=== PATIENT | female | born 2000 | race Caucasian/White ===

== ENCOUNTER → 2020-11-05 07:27 | Outpatient (CLI) | payer BC, SELFPAY ==
--- NOTE | ~2020-11-05 | XR_ITS ---
EXAMINATION: XR chest 2V 11/05/2020 08:04 INDICATION: Cough PROCEDURE: 2 view chest COMPARISON: No prior studies for comparison. FINDINGS: The lungs are clear. The cardiomediastinal silhouette is within normal limits. There are no pleural effusions. There is no pneumothorax suspected. IMPRESSION: 1: NO ACUTE CARDIOPULMONARY DISEASE. Reviewed, dictated and finalized at location B.
== END ==
PROVIDERS: PCP Physician Assistant; Visit Provider Physician Assistant
DX: R05 Cough (principal)
CPT/HCPCS: 71046

== ENCOUNTER 2021-11-05 11:05 | Emergency (ER) | payer BC, SELFPAY ==
--- NOTE | ~2021-11-05 | XR_ITS ---
EXAMINATION: XR hand LT min 3V DATE: 11/05/2021 11:28 INDICATION: Left hand pain with supination TECHNIQUE: Posteroanterior, oblique and lateral views of the left hand were obtained. COMPARISON: None. FINDINGS: Alignment is normal. No fracture. Joint spaces are normal. Soft tissues are unremarkable. IMPRESSION: 1. . Negative left hand radiographs. Reviewed, dictated and finalized at location B.
[2021-11-05 11:11] VITALS: BP 128/90; PULSE 74; RESP 16; TEMP 36.4; O2SAT 100
--- NOTE | 2021-11-05 11:20 | ED.EXTPRO ---
HPI - Extremity Problem General Chief complaint: Extremity Problem,Nontraumatic Stated complaint: Lt Hand and Wrist Pain Time Seen by Provider: 11/05/21 11:21 Source: patient Mode of arrival: ambulatory Limitations: no limitations History of Present Illness HPI Narrative: Loida Lee is a 21 y female with a PMH of anxiety and GERD who comes to [facility] with complaints of left wrist pain started on Wednesday night. She denies any trauma, strain, but states she cannot supinate her wrist because the pain is too bad. She describes the pain on the wrist that radiates up into her fourth finger Related Data Home Medications Medication Instructions Recorded Confirmed omeprazole 20 mg PO DAILY 11/05/21 11/05/21 sertraline 50 mg PO DAILY 11/05/21 11/05/21 Allergies Allergy/AdvReac Type Severity Reaction Status Date / Time NKDA Allergy Mild Other Uncoded 11/05/21 11:07 Review of Systems Review of Systems: CONSTITUTIONAL: Denies fever, chills, sweats. EYES: Denies visual changes, redness, discharge. ENT: Denies rhinorrhea, congestion, sore throat, otalgia. CARDIOVASCULAR: Denies chest pain, palpitations, edema. RESPIRATORY: Denies dyspnea, wheezing, cough GASTROINTESTINAL: Denies abdominal pain, nausea, vomiting, diarrhea. GENITOURINARY: Denies dysuria, hematuria, abnormal discharge SKIN: Denies rash or itching. NEUROLOGIC: Denies numbness, or focal weakness. PSYCHIATRIC: Denies anxiety or depression. Left wrist pain with restricted movement PMFSH Past Medical History Medical History Anxiety GERD (gastroesophageal reflux disease) Social History Social History (Updated 11/05/21 @ 11:28 by Alyce Llamas CNP) Smoking status: Never smoker Alcohol intake: current Comments At time of signature, I agree with nursing past medical, surgical, social and family history. There is no relevant family history pertinent to the presenting complaint. Exam Narrative: GENERAL: This is a well-nourished, well-developed patient, in mild distress. HEAD: normocephalic, atraumatic. EYES: Sclera clear/white. Vision is grossly intact. EARS: External ears normal,. Hearing grossly intact. NOSE: External nose normal without nasal discharge, nares without redness, no rhinorrhea. THROAT: Mucous membranes moist, posterior pharynx NECK: Neck supple, non-tender CARDIOVASCULAR: Regular rate and rhythm without murmurs, gallops, or rubs. RESPIRATORY: Clear to auscultation. Breath sounds equal bilaterally. No wheezes, rales, or rhonchi. GASTROINTESTINAL: Abdomen soft, non-tender, SKIN: warm, intact with no suspicious lesions or rash, good texture and turgor. NEURO: awake, alert, and oriented to person, place and time. There were no obvious focal neurologic abnormalities. Steady gait EXTREMITIES: Normal range of motion on R- on L feels cool, good cap refill, can splay fingers with pain, will not supinate L wrist due to pain, no swelling or ecchymosis BACK: Nontender without deformity Course Course Emergency Course: Complaints of left wrist and hand ipain denies injury- wearing velcro splint and taking ibuprofen without effect Xray of left wrist and hand-negative left hand radiograph alignment is normal no fracture joint spaces are normal soft tissue unremarkable Wrist wrapped with Flaquito wrap and continue ibuprofen 600 mg 3 times daily as needed Level of Care: Express Care Visit Vital Signs Vital signs: Vital Signs Temperature 97.5 F L 11/05/21 11:11 Pulse Rate 74 11/05/21 11:11 Respiratory Rate 16 11/05/21 11:11 Blood Pressure 128/90 11/05/21 11:11 Pulse Oximetry 100 11/05/21 11:11 Temperature 97.5 F L 11/05/21 11:11 Pulse Rate 74 11/05/21 11:11 Respiratory Rate 16 11/05/21 11:11 Blood Pressure 128/90 11/05/21 11:11 Pulse Oximetry 100 11/05/21 11:11 MDM - Extremity (Nontraumatic) MDM Narrative Medical decision making narrative: Wrist
== END 2021-11-05 11:41 | disposition home or self-care (01) ==
PROVIDERS: Emergency Provider Nurse Practitioner; PCP Physician Assistant
DX: M25.532 Pain in left wrist (principal); K21.9 Gastro-esophageal reflux disease without esophagitis; F41.9 Anxiety disorder, unspecified
CPT/HCPCS: 73130; 99213; G0463

== ENCOUNTER 2022-03-31 09:38 | Outpatient (CLI) | payer BC, SELFPAY ==
--- NOTE | ~2022-03-31 | XR_ITS ---
UGI-AIR CONTRAST/SMALL BOWEL INDICATION: Generalized abdominal pain. Nausea. TECHNIQUE: Serial images of the upper GI tract structures and small bowel are performed following ora l administration of barium using double contrast technique. COMPARISON: None FINDINGS: Barium flowed readily through the esophagus. There is a small sliding hiatal hernia with ga stroesophageal reflux. Gastric contour, mucosa and motility are normal. The duodenal bulb fills and empties regularly and has a normal mucosal pattern. The duodenal sweep is in normal position. The m ucosal pattern of the small bowel is unremarkable with normal transit time to the colon. IMPRESSION: 1: Small sliding hiatal hernia with gastroesophageal reflux.. Reviewed, dictated and finalized at location A.
== END 2022-03-31 09:39 | disposition home or self-care (01) ==
PROVIDERS: PCP Physician Assistant; Visit Provider Physician Assistant
DX: R10.13 Epigastric pain (principal); K44.9 Diaphragmatic hernia without obstruction or gangrene; K21.9 Gastro-esophageal reflux disease without esophagitis
CPT/HCPCS: 74246; 74248

== ENCOUNTER 2022-04-16 09:59 | Outpatient (CLI) | payer BC, SELFPAY ==
[2022-04-16 10:27] LABS: Hematocrit 38.6 % (37.0-47.0); Hemoglobin 12.5 g/dL (12.0-15.0); Mean Corpuscular HGB Conc 32.4 g/dl (32-36); Mean Corpuscular Hemoglobin 29.1 pg (26-34); Platelet Count Result 211 k/mm3 (150-375); Red Blood Count 4.29 M/mm3 (4.2-5.4); Red Cell Distribution Width 13.1 % (11.5-14.5); White Blood Count 5.6 K/mm3 (4.5-10.0)
[2022-04-16 10:57] LABS: Alanine Aminotransferase 16 U/L (6-35); Albumin Level 4.5 g/dL (3.5-5.1); Alkaline Phosphatase 47 U/L (38-126); Anion Gap 12 mmol/L (8-16); Aspartate Amino Transferase 19 U/L (14-36); Bilirubin,Total 0.2 mg/dL (0.2-1.3); Blood Urea Nitrogen 14 mg/dL (7-17); Calcium 8.9 mg/dL (8.4-10.2); Carbon Dioxide 26 mmol/L (22-30); Chloride 103 mmol/L (98-107); Estimated Glomerular Filt Rate > 60; Glucose 98 mg/dL (65-110); Sodium 141 mmol/L (137-145)
[2022-04-27 08:46] LABS: Gliadin AB, IgG <1.0; TTG IGA AB <1.0
== END 2022-04-16 10:00 | disposition home or self-care (01) ==
LOC: ANHLAB 10:02
PROVIDERS: PCP Physician Assistant; Visit Provider Nurse Practitioner
DX: F41.9 Anxiety disorder, unspecified (principal); K21.9 Gastro-esophageal reflux disease without esophagitis; R10.13 Epigastric pain; R93.3 Abnormal findings on diagnostic imaging of other parts of digestive tract; Z91.018 Allergy to other foods
CPT/HCPCS: 36415; 80053; 83516; 84443; 85027

== ENCOUNTER 2022-06-03 01:17 | Day surgery (SDC) | payer BC, SELFPAY ==
[2022-05-20 13:42] VITALS: BMI 29.4
--- NOTE | 2022-06-02 15:26 | PM.HPGS ---
History of Present Illness History of Present Illness Consent: Risks, benefits, and alternatives have been discussed and questions answered. Patient agrees to proceed with procedure. Chief complaint: GERD Narrative: Loida Lee is a 21 year old female Who states that ever since she was a baby she has had severe GERD.? She had been on Omeprazole 20 mg daily for several years. She states March 2021 she had increased epigastric burning and her PCP increased her omeprazole 40 mg daily and placed on Gaviscon 2 tabs daily and burning sensation subsided-she states around 1 month ago she began having epigastric burning again despite continuing to take her medication.? She states epigastric burning is constant whether she eats or does not eat and she will occasionally have reflux multiple times per week with some chest discomfort.? she recently had an upper GI on which there was noted a small hiatal hernia, and reflux was able to be induced. She states her entire stomach joyce almost all the time as if there is a match in there. This happens with that she is eating or not but might get worse if she has spicy foods. She had that she is allergic to many foods such as wheat based on blood tests that were done. She has not been diagnosed with celiac disease. Her mother stated that when Loida was a that she was vomiting and projectile fashion. They had performed an EGD which she was 1-week-old I told her that her flap does not close the vomiting did eventually stop Review of Systems Review of Systems: All systems reviewed & are unremarkable except as noted in HPI and below PMFSH Past Medical History Medical History Abnormal digestive system diagnostic imaging Anxiety Anxiety Epigastric burning sensation Gastroesophageal reflux disease GERD (gastroesophageal reflux disease) Multiple food allergies Overweight (BMI 25.0-29.9) Social History Social History Smoking status: Never smoker Alcohol intake: never Substance use: never Substance use type: does not use Living arrangements: with family Gender identity (if verbalized by the patient): Female Spiritual care concerns: No Meds Home Medications and Allergies Home Medications Medication Instructions Recorded Confirmed Type sertraline 50 mg tablet 50 mg PO DAILY 11/05/21 05/20/22 History ascorbic acid (vitamin C) 1,000 mg 1 g PO DAILY 04/16/22 05/20/22 History capsule cholecalciferol (vitamin D3) 250 250 mcg PO DAILY 04/16/22 05/20/22 History mcg (10,000 unit) capsule sucralfate 1 gram tablet (Carafate) 1 g PO ACHS #120 tabs 04/16/22 05/20/22 Rx omeprazole magnesium 20 mg 20 mg PO DAILY 05/20/22 05/20/22 History tablet,delayed release (Prilosec OTC) Gaviscon Extra Strength 06/03/22 History Allergies Allergy/AdvReac Type Severity Reaction Status Date / Time almond Allergy Nausea and Verified 06/03/22 10:59 Vomiting egg Allergy Nausea and Verified 06/03/22 10:51 Vomiting hazelnut Allergy Nausea and Verified 06/03/22 11:00 Vomiting lettuce Allergy Nausea and Verified 06/03/22 10:59 Vomiting Milk Containing Products Allergy Nausea and Verified 06/03/22 10:58 Vomiting peanut Allergy Nausea and Verified 06/03/22 10:58 Vomiting sesame seed Allergy Nausea and Verified 06/03/22 10:59 Vomiting soybean Allergy Nausea and Verified 06/03/22 10:51 Vomiting walnut Allergy Nausea and Verified 06/03/22 11:00 Vomiting wheat Allergy Nausea and Verified 06/03/22 10:57 Vomiting NKDA Allergy Mild Other Uncoded 06/03/22 10:29 Exam Const: General: alert Orientation/consciousness: patient oriented x3 Resp: Auscultation: clear to auscultation bilaterally Cardio: Rhythm: regular rhythm GI: GI Palp: Yes Soft to palpation and No Tenderness to palpation present (GI) Neuro:
[2022-06-03 10:30] VITALS: BP 107/66; PULSE 73; RESP 18; TEMP 36.6; O2SAT 99
[2022-06-03] MEDS: LACTATED RINGERS 1,000 ML 150 ML IV CONT (10:48)
--- NOTE | 2022-06-03 11:52 | WPDANESEPPF ---
Anes - Initial Pre Proc Eval Procedure: Operation Date: 06/03/22 13:00 Proposed Procedures p Esophagogastroduodenoscopy EGD - Jef Batista MD Date/Time: 06/03/22 11:52 Surgeon: Jef Batista MD Pre Op Diagnosis: GERD Patient Data Age: 21 Gender: F Height: 1.57 m Weight: 70.2 kg Last Vital Signs Temp 36.6 C 06/03/22 10:30 Pulse 73 06/03/22 10:30 Resp 18 06/03/22 10:30 BP 107/66 06/03/22 10:30 Pulse Ox 99 06/03/22 10:30 O2 Del Method Room Air 06/03/22 10:30 Allergies Allergy/AdvReac Type Severity Reaction Status Date / Time almond Allergy Nausea and Verified 06/03/22 10:59 Vomiting egg Allergy Nausea and Verified 06/03/22 10:51 Vomiting hazelnut Allergy Nausea and Verified 06/03/22 11:00 Vomiting lettuce Allergy Nausea and Verified 06/03/22 10:59 Vomiting Milk Containing Products Allergy Nausea and Verified 06/03/22 10:58 Vomiting peanut Allergy Nausea and Verified 06/03/22 10:58 Vomiting sesame seed Allergy Nausea and Verified 06/03/22 10:59 Vomiting soybean Allergy Nausea and Verified 06/03/22 10:51 Vomiting walnut Allergy Nausea and Verified 06/03/22 11:00 Vomiting wheat Allergy Nausea and Verified 06/03/22 10:57 Vomiting NKDA Allergy Mild Other Uncoded 06/03/22 10:29 Home Medications Medication Instructions Recorded Confirmed Type sertraline 50 mg tablet 50 mg PO DAILY 11/05/21 05/20/22 History ascorbic acid (vitamin C) 1,000 mg 1 g PO DAILY 04/16/22 05/20/22 History capsule cholecalciferol (vitamin D3) 250 250 mcg PO DAILY 04/16/22 05/20/22 History mcg (10,000 unit) capsule sucralfate 1 gram tablet (Carafate) 1 g PO ACHS #120 tabs 04/16/22 05/20/22 Rx omeprazole magnesium 20 mg 20 mg PO DAILY 05/20/22 05/20/22 History tablet,delayed release (Prilosec OTC) Gaviscon Extra Strength 06/03/22 History Patient hx anesthesia problems: none Family hx anesthesia problems: none Results Review: All pre-operative results and documents have been reviewed as part of the pre-operative evaluation. [facility] Past Medical History Medical History Abnormal digestive system diagnostic imaging Anxiety Anxiety Epigastric burning sensation Gastroesophageal reflux disease GERD (gastroesophageal reflux disease) Multiple food allergies Overweight (BMI 25.0-29.9) Social History Social History Smoking status: Never smoker Alcohol intake: never Substance use: never Substance use type: does not use Living arrangements: with family Gender identity (if verbalized by the patient): Female Spiritual care concerns: No Anes - Eval Final PreProcedure Day of Procedure 06/03/22 11:52 Patient weight: overweight Heart: regular rate and rhythm Lungs: clear to auscultation and normal air movement Airway: Mallampati scale class II Neurological: alert and oriented Last oral intake: >/= 8 hours ASA classification: II Emergent: no Anesthetic plan: proceed Anesthesia type and monitoring: general GIVS Results Review: All pre-operative results and documents have been reviewed as part of the pre-operative evaluation. Informed Consent: The patient's anesthetic plan and its attendant risks and benefits were discussed with the patient/family/POA. Questions were solicited and answers provided to the satisfaction of the patient/family/POA.
[2022-06-03 12:26] VITALS: BP 88/40; PULSE 66; RESP 16; O2SAT 100
[2022-06-03 12:36] VITALS: BP 94/53; PULSE 61; RESP 20; O2SAT 100
[2022-06-03 12:46] VITALS: BP 101/61; PULSE 60; RESP 20; O2SAT 100
== END 2022-06-03 12:55 | disposition home or self-care (01) ==
PROVIDERS: PCP Physician Assistant; Visit Provider Internal Medicine Gastroenterology
PROC: 0DJ08ZZ Inspection of Upper Intestinal Tract, Via Natural or Artificial Opening Endoscopic (ICD-10-PCS; CPT 43235; principal; 2022-06-03 13:00)
DX: K21.9 Gastro-esophageal reflux disease without esophagitis (principal); F41.9 Anxiety disorder, unspecified
CPT/HCPCS: 43239; 88305; J2704; J7120

== ENCOUNTER 2022-11-06 21:03 | Emergency (ER) | payer BC, SELFPAY ==
--- NOTE | ~2022-11-06 | XR_ITS ---
EXAMINATION: XR chest 2V DATE: 11/06/2022 22:30 INDICATION: Chest pain. TECHNIQUE: Frontal and lateral views of the chest were obtained. COMPARISON: Chest 2 views 11/05/2020 FINDINGS: The chest demonstrates clear lungs without pneumonia, pleural effusion, or pneumothorax. Th e heart size is normal. IMPRESSION: 1. No acute cardiopulmonary disease. Reviewed, dictated and finalized at location E.
[2022-11-06 21:05] VITALS: BP 120/76; PULSE 87; RESP 20; TEMP 36.7; O2SAT 100
--- NOTE | 2022-11-06 21:48 | ED.ALLEREA ---
HPI - Allergic Reaction General Chief complaint: Allergic Reaction Stated complaint: allergic rx Time Seen by Provider: 11/06/22 21:06 History of Present Illness HPI narrative: This is a 22-year-old female with multiple food allergies, including chocolate who was brought to the emergency department by EMS with concern for anaphylaxis. The patient states she ate chocolate approximately 3 hours ago and noticed throat swelling, chest pain and diarrhea. She states she took 50 of Benadryl approximately 30 minutes after beginning of her symptoms. EMS reports vital signs were normal in route. The patient was given 0.3 mg IM epinephrine and 10 of Decadron IV. Related Data Home Medications Medication Instructions Recorded Confirmed sertraline 50 mg tablet 50 mg PO DAILY 11/05/21 05/20/22 ascorbic acid (vitamin C) 1,000 mg 1 g PO DAILY 04/16/22 05/20/22 capsule cholecalciferol (vitamin D3) 250 250 mcg PO DAILY 04/16/22 05/20/22 mcg (10,000 unit) capsule omeprazole magnesium 20 mg 20 mg PO DAILY 05/20/22 05/20/22 tablet,delayed release (Prilosec OTC) Gaviscon Extra Strength 06/03/22 Allergies Allergy/AdvReac Type Severity Reaction Status Date / Time almond Allergy Nausea and Verified 06/03/22 10:59 Vomiting egg Allergy Nausea and Verified 06/03/22 10:51 Vomiting hazelnut Allergy Nausea and Verified 06/03/22 11:00 Vomiting lettuce Allergy Nausea and Verified 06/03/22 10:59 Vomiting Milk Containing Products Allergy Nausea and Verified 06/03/22 10:58 Vomiting peanut Allergy Nausea and Verified 06/03/22 10:58 Vomiting sesame seed Allergy Nausea and Verified 06/03/22 10:59 Vomiting soybean Allergy Nausea and Verified 06/03/22 10:51 Vomiting walnut Allergy Nausea and Verified 06/03/22 11:00 Vomiting wheat Allergy Nausea and Verified 06/03/22 10:57 Vomiting NKDA Allergy Mild Other Uncoded 06/03/22 10:29 Review of Systems Review of Systems: CONSTITUTIONAL: Denies fever, chills, or sweats. CARDIOVASCULAR: Chest pain denies palpitations, or edema. RESPIRATORY: Denies cough or dyspnea. GASTROINTESTINAL: Diarrhea denies abdominal pain, nausea, vomiting GENITOURINARY: Denies dysuria or hematuria. SKIN: Denies rash or itching. MUSCULOSKELETAL: Denies back pain, joint pain, or myalgia. NEUROLOGIC: Denies headache, numbness, dizziness, or weakness. PSYCHIATRIC: Denies anxiety or depression. [facility] Past Medical History Medical History Abnormal digestive system diagnostic imaging Anxiety Anxiety Epigastric burning sensation Gastroesophageal reflux disease GERD (gastroesophageal reflux disease) Multiple food allergies Overweight (BMI 25.0-29.9) Social History Social History Smoking status: Never smoker Alcohol intake: never Substance use: never Substance use type: does not use Living arrangements: with family Gender identity (if verbalized by the patient): Female Spiritual care concerns: No Exam Narrative: GENERAL: Well-developed, well-nourished, and in no acute distress. HEAD: Normocephalic, atraumatic. EYES: PERRLA and EOMI. ENT: Nares clear, no rhinorrhea or epistaxis. Mucous membranes moist. Oropharynx without tonsillar hypertrophy exudate or other lesions. No noted swelling NECK: Supple. No adenopathy or masses. No carotid bruits or JVD. No stridor CHEST: Clear to auscultation. No respiratory distress. No wheezes rales or rhonchi HEART: Regular rate and rhythm. No murmur heard. Normal peripheral pulses. ABDOMEN: Soft, nontender, nondistended, normal active bowel sounds. EXTREMITIES: Normal range of motion. No edema. SKIN: Warm, dry, no rash. NEURO: No focal deficits. Alert and oriented x3. PSYCH: Normal mood and affect. Course Course Emergency Course: 21:29 - Exam is not concerning for airway compromise. Will
--- NOTE | 2022-11-06 21:49 | ECG_ITS ---
Measurements Intervals [place] Rate: 86 P: 50 CT: 120 QRS: 38 QRSD: 98 T: 27 QT: 385 QTc: 462 Interpretive Statements SINUS RHYTHM POSSIBLE RIGHT VENTRICULAR CONDUCTION DELAY [RSR (QR) IN V1/V2] NO PREVIOUS ECG AVAILABLE FOR COMPARISON Electronically Signed On 11-07-2022 12:14:40 CDT by Vamshi Borja M.D.
[2022-11-06] MEDS: FAMOTIDINE 20 MG/2 ML VIAL 40 MG IV PUSH (21:51)
[2022-11-06 22:41] VITALS: BP 124/62; PULSE 107; RESP 18; O2SAT 99
== END 2022-11-06 23:13 | disposition left against medical advice (07) ==
PROVIDERS: Emergency Provider Preventive Medicine Aerospace Medicine; PCP Physician Assistant
DX: T78.1XXA Other adverse food reactions, not elsewhere classified, initial encounter (principal); R07.9 Chest pain, unspecified; R19.7 Diarrhea, unspecified; J02.9 Acute pharyngitis, unspecified
CPT/HCPCS: 71046; 81025; 93005; 96374; 99284

== ENCOUNTER 2022-11-23 11:03 | Emergency (ER) | payer BC, SELFPAY ==
--- NOTE | ~2022-11-23 | CT_ITS ---
EXAMINATION: CT abdomen pelvis w con DATE: 11/23/2022 12:28 INDICATION: Right-sided abdominal pain TECHNIQUE: Computed tomography (CT) of the abdomen and pelvis was performed with 100 cc Omnipaque 350 intravenous contrast. The dose-length product was 296.21 mGy-cm. Automated exposure control and iter ative reconstruction technique were employed. COMPARISON: None. FINDINGS: Lung bases are unremarkable. Heart size is normal. No significant pleural or pericardial ef fusion. No significant vascular abnormality. No lymphadenopathy. Small amount of free fluid in the pe lvis, likely physiologic. Nonobstructive bowel gas pattern. The liver, spleen, pancreas, adrenal glan ds and kidneys are unremarkable. Gallbladder is present. No free air. IMPRESSION: 1. No acute abdominal abnormality. Reviewed, dictated and finalized at location B.
[2022-11-23 11:13] VITALS: BP 117/81; PULSE 84; RESP 16; TEMP 36.4; O2SAT 98
[2022-11-23 11:15] VITALS: BP 118/75; PULSE 89; RESP 18; TEMP 36.4; O2SAT 100
[2022-11-23 11:21] VITALS: BP 118/75; PULSE 94; RESP 18; O2SAT 100
--- NOTE | 2022-11-23 11:26 | ED.ABDPAIN ---
HPI - Abdominal Pain General Chief Complaint: Abdominal Pain Stated Complaint: gallbladder pain Time Seen by Provider: 11/23/22 11:08 History of Present Illness HPI narrative: Patient is a 22-year-old female here for evaluation of abdominal pain x3 days. Patient states that the pain is located in her right upper and right lower quadrant and occasionally moves to her periumbilical region. It is described as severe in nature and is there after she eats a meal. Patient states she has also been unable to tolerate any p.o. over the past 3 days due to nausea and vomiting. She reports constipation and pain in her periumbilical region when she strains to have a bowel movement. Denies any fevers, chills. States she feels she is hypoglycemic. Related Data Home Medications Medication Instructions Recorded Confirmed sertraline 50 mg tablet 50 mg PO DAILY 11/05/21 05/20/22 ascorbic acid (vitamin C) 1,000 mg 1 g PO DAILY 04/16/22 05/20/22 capsule cholecalciferol (vitamin D3) 250 250 mcg PO DAILY 04/16/22 05/20/22 mcg (10,000 unit) capsule omeprazole magnesium 20 mg 20 mg PO DAILY 05/20/22 05/20/22 tablet,delayed release (Prilosec OTC) Gaviscon Extra Strength 06/03/22 Allergies Allergy/AdvReac Type Severity Reaction Status Date / Time almond Allergy Nausea and Verified 11/23/22 11:22 Vomiting egg Allergy Nausea and Verified 11/23/22 11:22 Vomiting hazelnut Allergy Nausea and Verified 11/23/22 11:22 Vomiting lettuce Allergy Nausea and Verified 11/23/22 11: Vomiting Milk Containing Products Allergy Nausea and Verified 11/23/22 11:22 (Dairy) Vomiting [Milk Containing Products] No Known Drug Allergies Allergy Verified 11/23/22 11: peanut Allergy Nausea and Verified 11/23/22 11:22 Vomiting sesame seed Allergy Nausea and Verified 11/23/22 11: Vomiting soybean Allergy Nausea and Verified 11/23/22 11:22 Vomiting walnut Allergy Nausea and Verified 11/23/22 11: Vomiting wheat Allergy Nausea and Verified 11/23/22 11:22 Vomiting Review of Systems Review of Systems: Gen.: Denies fevers or chills Eyes: Denies eye pain or visual change ENT: Denies congestion Respiratory: Denies shortness of breath or cough CV: Denies chest pain or palpitations GI: Reports abdominal pain, nausea, vomiting and constipation denies burning, urgency, frequency or hematuria Musculoskeletal: Denies back pain or muscle pain Neuro: Denies numbness, tingling, weakness or focal weakness Skin: Denies rash Except as documented, all other systems reviewed and negative PMFSH Past Medical History Medical History Abnormal digestive system diagnostic imaging Anxiety Anxiety Epigastric burning sensation Gastroesophageal reflux disease GERD (gastroesophageal reflux disease) Multiple food allergies Overweight (BMI 25.0-29.9) Social History Social History Smoking status: Never smoker Alcohol intake: never Substance use: never Substance use type: does not use Living arrangements: with family Gender identity (if verbalized by the patient): Female Spiritual care concerns: No Exam Narrative: APPEARANCE: Well appearing, no pain in distress, well-nourished. Head: Normocephalic and atraumatic. EYES: PERRLA/EOMI, conjunctivae clear NOSE: No nasal drainage EARS: External ear normal in appearance THROAT: Oropharynx is clear. Mucous membranes are moist. NECK: Supple. No adenopathy, no masses. RESPIRATORY: Airway patent, respirations nonlabored. Clear to auscultation bilaterally, no rales, rhonchi, wheezing. CARDIOVASCULAR: Regular rate and rhythm without murmurs, rubs, or gallops. ABDOMINAL: Slight tenderness to palpation in the right upper quadrant and right lower quadrant without rebound or guarding. There is slight right-sided CVA tenderness. [facility]
[2022-11-23] MEDS: DICYCLOMINE HCL INJ 20 MG/2 ML VIAL IM (11:45)
[2022-11-23 11:46] VITALS: BP 109/78; RESP 18
[2022-11-23] MEDS: SODIUM CHLORIDE 0.9% IV 1,000 ML 999 ML IV CONT (11:46)
[2022-11-23] MEDS: FAMOTIDINE 20 MG/2 ML VIAL IV PUSH (11:46)
[2022-11-23 11:59] LABS: Basophils Absolute Auto 0.1 K/mm3 (0.0-0.1); Basophils Percent Auto 0.7 % (0.2-1.2); Eosinophils Absolute Auto 0.7 K/mm3 (0-0.3); Eosinophils Percent Auto 10.2 % (0-4.4); Hematocrit 41.1 % (37.0-47.0); Hemoglobin 13.4 g/dL (12.0-15.0); Immature Granulocyte Absolute 0.02 K/mm3 (0.00-0.031); Immature Granulocyte Percent A 0.3 % (0-0.5); Lymphocytes Absolute Auto 1.36 K/mm3 (0.9-3.2); Lymphocytes Percent Auto 19.2 % (18.3-44.2); Mean Corpuscular HGB Conc 32.6 g/dl (32-36); Mean Corpuscular Hemoglobin 28.2 pg (26-34); Mean Corpuscular Volume 86.5 fl (80-100); Mean Platelet Volume 10.3 fl (7.4-10.4); Monocytes Absolute Auto 0.3 K/mm3 (0.1-0.6); Monocytes Percent Auto 4.2 % (2.6-8.5); Neutrophils Absolute Auto 4.6 K/mm3 (1.3-6.7); Neutrophils Percent Auto 65.4 % (45.5-73.1); Platelet Count Result 240 k/mm3 (150-375); Red Blood Count 4.75 M/mm3 (4.2-5.4); Red Cell Distribution Width 12.9 % (11.5-14.5); White Blood Count 7.1 K/mm3 (4.5-10.0)
[2022-11-23 12:08] LABS: Alanine Aminotransferase 19 U/L (6-35); Albumin Level 4.8 g/dL (3.5-5.1); Alkaline Phosphatase 55 U/L (38-126); Anion Gap 10 mmol/L (8-16); Aspartate Amino Transferase 24 U/L (14-36); Bilirubin,Total 0.6 mg/dL (0.2-1.3); Blood Urea Nitrogen 18 mg/dL (7-17); Calcium 9.1 mg/dL (8.4-10.2); Carbon Dioxide 27 mmol/L (22-30); Chloride 103 mmol/L (98-107); Estimated CRCL calculation 89 ml/min; Estimated Glomerular Filt Rate > 60; Glucose 86 mg/dL (65-110); Lipase 111 U/L (23-300); Potassium 3.7 mmol/L (3.4-5.0); Sodium 140 mmol/L (137-145)
[2022-11-23 12:12] LABS: Appearance Urine Clear (Clear); Bilirubin Urine Negative (Negative); Blood Urine Negative (Negative); Color Urine Yellow (Yellow); Glucose Urine UA Negative (Negative); Ketones Urine Trace mg/dL (Negative); Leukocyte Esterase Ur Negative LEU/UL (Negative); Nitrate Urine Negative (Negative); Protein Urine Negative (Negative); Specific Grav Ur 1.028 (1.001-1.035); Urobilinogen Urine 0.2 mg/dL (<2.0); pH Urine 5.5 (5.0-9.0)
[2022-11-23 12:17] LABS: Add Urine Microscopic? NO
[2022-11-23] MEDS: BELLADONNA ALK/PHENOB ELIX 10 ML, MAG HYDROX/ALUMINUM HYD/SIMETH 30 ML, LIDOCAINE HCL 2... PO (13:09)
== END 2022-11-23 13:37 | disposition home or self-care (01) ==
PROVIDERS: Emergency Provider Physician Assistant; PCP Physician Assistant
DX: R10.84 Generalized abdominal pain (principal); F41.9 Anxiety disorder, unspecified; K21.9 Gastro-esophageal reflux disease without esophagitis
CPT/HCPCS: 36415; 74177; 80053; 81003; 81025; 83690; 85025; 96361; 96372; 96374; 99284; A9270; J0500; J2405; J7030; Q9967

== ENCOUNTER 2022-12-02 01:49 | Day surgery (SDC) | payer BC, SELFPAY ==
[2022-11-27 10:00] VITALS: BMI 25.4
--- NOTE | 2022-11-27 10:06 | PC.NURSE ---
Report to the Outpatient Waiting Room, entrance under the green pavilion located off [facility], at time 0700 on date 12/02/22. Planned Procedure Time: 0900. Time changes happen often and if your time is changed the preop area will call you the afternoon before. - You and your visitor will be asked to self-screen and do not enter if you have any COVID symptoms. - A mask is optional within the hospital at this time. Patients may have clear liquids (water, carbonated beverages, clear teas, apple juice) until 3 hours prior to surgery with a maximum of 20 ounces. - No food from midnight until time of surgery Take the following medications with a SIP of water the morning of surgery: NONE DO NOT STOP ANY OF YOUR OTHER PRESCRIPTION MEDICATIONS PRIOR TO SURGERY EXCEPT THE FOLLOWING Medications to discontinue per physician VITAMINS Date to take last dose: NO MORE UNTIL AFTER SURGERY Please no make-up, nail ivorian, hairspray, perfume, deodorant, or body powder the day of surgery. No jewelry (including any body piercings) or valuables the day of surgery, leave them at home. Please take a shower or bath the night before, or the morning of, surgery with an antibacterial soap (HIBICLENS). Wear comfortable, loose fitting clothing. - Jewelry must be removed prior to entering the operating room. Rings and piercings that are not removed may be cut off. - The hospital will not accept responsibility for valuables. - Please leave all valuables, including medications, at home the day of surgery. If you are going home after surgery, a licensed bulk delivery driver must drive you home. - NO public transportation without another adult if you receive anesthesia. - We recommend that an adult stay with you for 24 hours following discharge. - We also recommend that you do not drive, make important decision, drink alcoholic beverages, or take any drugs that were not prescribed by your health care provider for at least 24 hours after your discharge time. Follow any additional instructions given to you from your surgeon. If you or anyone in your household have experienced Covid symptoms in the past week, please notify your surgeon or the nurse liaison at the phone number below for possible testing. Telephone instructions given to PT - ZHANE ROSENTHAL and asked if any additional questions and then verbalized understanding. Patient advised to call surgeon office or pre surgery nurse liaison [phone] if any additional questions.
[2022-12-02] VITALS (9 sets, daily range): BP systolic 107–133; BP diastolic 63–82; PULSE 64–77; RESP 8–16; TEMP 36.4–36.6; O2SAT 99–100
[2022-12-02] MEDS: LACTATED RINGERS 1,000 ML 30 ML IV CONT ×2 (07:30→10:13)
--- NOTE | 2022-12-02 07:55 | WPDANESEPPF ---
Anes - Initial Pre Proc Eval Procedure: Operation Date: 12/02/22 09:00 Proposed Procedures p Laparoscopic Cholecystectomy, Possible Open - Yaya Torres MD Date/Time: 12/02/22 07:55 Surgeon: Yaya Torres MD Pre Op Diagnosis: gallbladder dysfunction Patient Data Age: 22 Gender: F Height: 1.6 m Weight: 65.32 kg Allergies Allergy/AdvReac Type Severity Reaction Status Date / Time almond Allergy Nausea and Verified 11/27/22 09:58 Vomiting beef derived (bovine) Allergy Other Verified 11/27/22 09:58 chocolate flavor Allergy Other Verified 11/27/22 09:58 coconut Allergy Other Verified 11/27/22 09:58 egg Allergy Nausea and Verified 11/27/22 09:58 Vomiting hazelnut Allergy Nausea and Verified 11/27/22 09:58 Vomiting lettuce Allergy Nausea and Verified 11/27/22 09:58 Vomiting Milk Containing Products Allergy Nausea and Verified 11/27/22 09:58 (Dairy) Vomiting [Milk Containing Products] No Known Drug Allergies Allergy Other Verified 11/27/22 09:58 peanut Allergy Nausea and Verified 11/27/22 09:58 Vomiting rice Allergy Other Verified 11/27/22 09:58 sesame seed Allergy Nausea and Verified 11/27/22 09:58 Vomiting soybean Allergy Nausea and Verified 11/27/22 09:58 Vomiting strawberry Allergy other Verified 11/27/22 09:58 walnut Allergy Nausea and Verified 11/27/22 09:58 Vomiting wheat Allergy Nausea and Verified 11/27/22 09:58 Vomiting Home Medications Medication Instructions Recorded Confirmed Type sertraline 50 mg tablet 50 mg PO HS 11/05/21 11/27/22 History cholecalciferol (vitamin D3) 250 250 mcg PO DAILY 04/16/22 11/27/22 History mcg (10,000 unit) capsule sucralfate 1 gram tablet (Carafate) 1 g PO ACHS #120 tabs 04/16/22 11/27/22 Rx epinephrine 0.3 mg/0.3 mL 0.3 mg (0.3 mL) IM ONCE 11/06/22 11/27/22 Rx injection, auto-injector anaphylaxis #2 ea pantoprazole 40 mg tablet,delayed 40 mg PO QAM 11/27/22 11/27/22 History release Laboratory Tests 12/02/22 07:50 Amylase Pending Patient hx anesthesia problems: none Family hx anesthesia problems: none Results Review: All pre-operative results and documents have been reviewed as part of the pre-operative evaluation. [facility] Past Medical History Medical History Abnormal digestive system diagnostic imaging Anxiety Anxiety Epigastric burning sensation Gastroesophageal reflux disease GERD (gastroesophageal reflux disease) Multiple food allergies Overweight (BMI 25.0-29.9) Surgical History Surgical History (Updated 12/02/22 @ 07:55 by Aquiles Jiménez MD) History of esophagogastroduodenoscopy (EGD) Family History Family History Other Hypertension Social History Social History Smoking status: Never smoker Alcohol intake: never Substance use: never Substance use type: does not use Living arrangements: with family Gender identity (if verbalized by the patient): Female Spiritual care concerns: No Anes - Eval Final PreProcedure Day of Procedure 12/02/22 07:55 Patient weight: normal Heart: regular rate and rhythm Lungs: clear to auscultation Airway: Mallampati scale class II Neurological: alert and oriented Last oral intake: >/= 8 hours ASA classification: I Emergent: no Anesthetic plan: proceed Anesthesia type and monitoring: general ETT and standard monitoring Results Review: All pre-operative results and documents have been reviewed as part of the pre-operative evaluation. Informed Consent: The patient's anesthetic plan and its attendant risks and benefits were discussed with the patient/family/POA. Questions were solicited and answers provided to the satisfaction of the patient/family/POA.
[2022-12-02] MEDS: ACETAMINOPHEN 500 MG TABLET 1000 MG PO (08:00)
[2022-12-02] MEDS: SCOPOLAMINE 1.5 MG PATCH TRANSDERM (08:00)
[2022-12-02] MEDS: KETOROLAC 15 MG/ML VIAL (*BKC) IV PUSH ×2 (08:00→09:52)
[2022-12-02 08:11] LABS: Amylase 69 U/L (30-110)
--- NOTE | 2022-12-02 08:24 | WPDHPUPDATE1 ---
History and Physical Update Update Date/Time: 12/02/22 08:24 History and Physical has been reviewed, including an updated exam of the patient. There are NO changes in the patient's condition. Risks, benefits, and alternatives have been discussed and questions answered. Patient agrees to proceed with procedure.
[2022-12-02] MEDS: ceFAZolin 2 GM/D5W 50 ML 2 GM/50 ML BAG IVPB (09:00)
[2022-12-02] MEDS: LIDO 1%/EPINEPHRINE 1:100,000 50 ML VIAL 30 ML INFILTRATE (09:55)
[2022-12-02] MEDS: BUPivacaine HCL 0.5% 10 ML AMP 30 ML INFILTRATE (09:55)
[2022-12-02] MEDS: fentaNYL CITRATE INJ (*CRX) 100 MCG/2 ML VIAL 25 MCG IV PUSH ×4 (10:46→11:02)
--- NOTE | 2022-12-02 10:59 | W.PM.PROC2 ---
Procedure Note - Detailed Date of Procedure 12/02/22 Pre-op Diagnosis gallbladder dysfunction Post-op Diagnosis Same Procedure Performed Laparoscopic cholecystectomy Surgeon Yaya Torres MD Certified Physician Assistant Loida Bain, RUTH Anesthesia General Indications patient is a 22-year-old female who has had severe issue issues with nausea and right upper quadrant pain with eating. Abdominal ultrasound showed no gallstones but HIDA scan showed a dysfunctional gallbladder. She presents now for elective laparoscopic cholecystectomy. Findings Gallbladder appeared to be relatively normal in wall thickness. No adhesions of the gallbladder wall. No gallstones were noted. Description of Procedure After informed consent was obtained patient was brought to the operating room where she was placed in supine position and general endotracheal anesthesia was administered. The abdomen was then prepped and draped in usual sterile fashion. A time-out was then performed correctly identifying the patient as well as procedure to be performed. It was verified she was given preoperative IV antibiotics. I 1st started making a small periumbilical incision with a scalpel and spread the subcutaneous tissues a hemostat. Then with traction upwards on the anterior abdominal wall a Veress needle was placed into the abdomen without difficulty. I then insufflated to adequate pneumoperitoneum of 15mmHg of CO2. A 5mm Optiview port was then used to enter the abdomen the mega umbilical trocar port site. Once inside the abdomen I visualized the gallbladder was distended but there were no adhesions of the duodenum, stomach or omentum to the gallbladder wall. I then placed additional trocar ports included a 10mm epigastric trocar port 2 more 5mm right subcostal trocar ports under direct visualization. The gallbladder is held laparoscopic grasper the dome and elevated over the right half of the liver towards the right shoulder. 2nd grasper was used to hold the gallbladder at the infundibulum. I then proceeded to strip down the visceroperitoneum off of the infundibular gallbladder to identify the cystic duct. The cystic duct was then dissected out circumferentially. The cystic artery was identified dissected out circumferentially as well. There was both an anterior and posterior branches of cystic artery. I then dissected the infundibular gallbladder off of the liver bed utilizing electrocautery. At this point felt that I had the critical view and so I placed 2 clips proximally cystic duct and 2 clips distally high on the infundibular gallbladder. The cystic duct was divided with Endo Pato. A similar fashion anterior posterior branches the cystic artery clipped and divided as well. The gallbladder was then resected off the liver utilized electrocautery. There was no spillage of any bile. Once the gallbladder was freed it was placed in Endo-Catch bag and brought out through the epigastric port site. The gallbladder was passed off table sent to pathology for examination. I then irrigated out the right upper quadrant the abdomen the gallbladder fossa copious sterile saline solution. Hemostasis was excellent. There is no evidence of bile leak. I then aspirated the fluid from the right upper quadrant the abdomen from the pelvis. I then removed all the trocar ports under direct visualization all port sites appeared hemostatic. I then that allowed the abdomen decompressed. I then irrigated out the port sites sterile saline solution hemostasis was good. The epigastric 10mm trocar port fascial defect was closed utilizing 0 Vicryl suture placed in a figure-eight fashion. The skin edges no other port sites with the proximal utilizing a running subcuticular 4-0 Monocryl suture. The incisions were then cleaned and then skin glue was applied for final dressing. The patient tolerated the procedure well no complications. All sponges, needles, and instrument counts were correct at the end pro
[2022-12-02] MEDS: ONDANSETRON INJ 4 MG/2 ML VIAL IV PUSH (11:47)
== END 2022-12-02 12:18 | disposition home or self-care (01) ==
PROVIDERS: PCP Physician Assistant; Visit Provider Surgery
PROC: 0FT44ZZ Resection of Gallbladder, Percutaneous Endoscopic Approach (ICD-10-PCS; CPT 47562; principal; 2022-12-02 09:00)
DX: K81.1 Chronic cholecystitis (principal); K21.9 Gastro-esophageal reflux disease without esophagitis
CPT/HCPCS: 47562; 36415; 82150; 86850; 86900; 86901; 88304; A9270; C1713; J0690; J1100; J1885; J2250; J2405; J2704; J2710; J3010; J7030; J7120

== ENCOUNTER 2023-01-26 12:55 | Outpatient (CLI) | payer BC, SELFPAY ==
--- NOTE | ~2023-01-26 | US_ITS ---
US breast LT limited INDICATION: Palpable left breast abnormality. Tenderness. TECHNIQUE: Dedicated Limited left breast ultrasound COMPARISON: No prior studies for comparison. FINDINGS: The left breast is composed of normal heterogeneous echotexture without focal solid or cyst ic mass. IMPRESSION: 1: Normal limited left breast ultrasound. BI-RADS CATEGORY 1 - NEGATIVE Reviewed, dictated and finalized at location A.
== END 2023-01-26 12:56 ==
PROVIDERS: PCP Physician Assistant; Visit Provider Physician Assistant
DX: N60.02 Solitary cyst of left breast (principal)
CPT/HCPCS: 76642

== ENCOUNTER 2024-05-24 09:02 | Outpatient (CLI) | payer BC, SELFPAY ==
--- NOTE | 2024-05-24 | ECHO_ITS ---
Patient Info Name: Loida Lee Age: 23 years : 2000 Gender: Female Ht: 61 in Wt: 140 lbs BSA: 1.67 m2 HR: 73 bpm BP: 114 / 77 mmHg Heart Rhythm: Sinus Rhythm Technical Quality: Good Exam Date: 05/24/2024 9:36 AM Exam Location: Echo Lab Patient Status: Outpatient Admit Date: 05/24/2024 Staff Ordering Physician: AlexysEvelin PA-C Knifeman: Lauren Gonzalez RDCS Attending Provider: Evelin Hardin PA-C Exam Type: CA echo doppler color flow Study Info Indications R00.2 - Palpitations Complete two-dimensional, color flow and Doppler transthoracic echocardiogram is performed. Summary 1. Complete two-dimensional, color flow and Doppler transthoracic echocardiogram is performed. 2. Left ventricular chamber dimension is normal. 3. Left ventricular systolic function is normal, estimated at 65-70%. 4. The left ventricular diastolic function is normal. 5. There is trace tricuspid valve regurgitation. 6. No pulmonary hypertension, estimated pulmonary arterial systolic pressure is 23 mmHg. Left Ventricle Left ventricular chamber dimension is normal. Left ventricular systolic function is normal, estimated at 65-70%. The left ventricular diastolic function is normal. Right Ventricle Right ventricular systolic function is normal and with normal TAPSE 2.2 cm. Right ventricular chamber dimension is normal. Left Atria Left atrial chamber dimension is normal. Right Atria Right atrial chamber dimension is normal. Aortic Valve The aortic valve is trileaflet. There is no aortic valve stenosis. There is no aortic valve regurgitation. Pulmonic Valve There is no pulmonic regurgitation. Mitral Valve There is no mitral valve stenosis. There is no mitral valve regurgitation. Tricuspid Valve There is trace tricuspid valve regurgitation. No pulmonary hypertension, estimated pulmonary arterial systolic pressure is 23 mmHg. Pericardium/Pleural There is no pericardial effusion. Inferior Vena Cava Normal inferior vena cava with >50% collapse upon inspiration consistent with normal right atrial pressure, 5 mmHg. Aorta The aortic root size at the sinus of Valsalva is normal. Left Ventricular Outflow Tract Name Value Normal LVOT 2D LVOT Diameter 2.0 cm LVOT Doppler LVOT Peak Gradient 4 mmHg LVOT Mean Gradient 2 mmHg LVOT VTI 23 cm LVOT VTI/AV VTI Ratio 0.8 LVOT Stroke Volume 74 ml LVOT CO 4.3 l/min LVOT CI 2.6 l/min/m2 Pulmonic Valve Name Value Normal RVOT Doppler RVOT Peak Gradient 2 mmHg PV Doppler PV Peak Gradient 3 mmHg Mitral Valve Name Value Normal MV Doppler MV Decel [place] 399 cm/s2 MV PHT 63 ms MV Area (PHT) 3.5 cm2 4.0-5.0 MV Diastolic Function MV E Peak Velocity 87 cm/s MV A Peak Velocity 43 cm/s MV E/A 2.0 MV Decel Time 218 ms Tricuspid Valve Name Value Normal TV Regurgitation Doppler TR Peak Velocity 213 cm/s TR Peak Gradient 18 mmHg Estimated PAP/RSVP RA Pressure 5 mmHg <=5 PA Systolic Pressure 23 mmHg <36 RV Systolic Pressure 23 mmHg <36 Aorta Name Value Normal Ascending Aorta Ao Root Diameter (MM) 2.3 cm Ao Root Diam Index (MM) 1.4 cm/m2 Aortic Valve Name Value Normal AV Doppler AV Peak Velocity 135 cm/s AV Peak Gradient 7 mmHg AV Mean Gradient 4 mmHg AV VTI 31 cm AV Area (Cont Eq VTI) 2.4 cm2 >=3.0 AV Area (Cont Eq Keshav) 2.4 cm2 AV Regurgitation 2D LVOT Area 3.2 cm2 Ventricles Name Value Normal LV Dimensions 2D/MM IVS Diastolic Thickness (2D) 0.7 cm 0.6-1.0 LVID Diastole (2D) 4.4 cm 3.8-5.2 LVIW Diastolic Thickness (2D) 0.7 cm 0.6-0.9 LVID Systole (2D) 2.7 cm 2.2-3.5 LVOT Diameter 2.0 cm LV Mass (2D Cubed) 96.46 g 67.00-162.00 LV Mass Index (2D Cubed) 58 g/m2 43-95 Relative Wall Thickness (2D) 0.32 LV Fractional Shortening/Ejection Fraction 2D/MM LV Fractional Shortening (2D) 39 % 27-45 LV EF (2D Teicholz) 70 % 54-74 LV Diastolic Volume (4C MOD) 63 ml LV EF (4C MOD) 72 % LV Diastolic Volume (2C MOD) 78 ml LV EF (2C MOD) 72 % LV Diastolic Volume (BP MOD) 75 ml 46-106 LV Diastolic Volume Index (BP MOD) 45 ml/m2 29-61 LV Systolic Volume (BP MOD) 20 ml 14-42 LV Systolic Volume Index (BP MOD) 12 ml/m2 8-24 LV EF (BP MOD) 73 % 54-74 LV Diastolic Length (4C) 7.1 cm LV Systolic Length (4C) 5.2 cm LV Stroke Volume (4C MOD) 45 ml Atria Name Value Normal LA Dimensions LA Dimension (MM) 3.4 cm 2.7-3.8 LA Volume (4C A-L) 35 ml LA Volume (BP A-L) 39 ml RA Dimensions RA Area (4C) 10.5 cm2 <=18.0 Report Signatures
== END 2024-05-24 09:03 | disposition home or self-care (01) ==
PROVIDERS: PCP Physician Assistant; Visit Provider Physician Assistant
DX: R00.2 Palpitations (principal)
CPT/HCPCS: 93306